=== PATIENT | female | born 1975 | race African-American/Black ===

== ENCOUNTER 2017-09-24 12:55 | Emergency (ER) | payer OTHER ==
[2017-09-24] MEDS: ACETAMINOPHEN 500 MG TAB PO (13:49)
[2017-09-24 14:13] LABS: ADD UMIC NO; UR ASCORBIC ACID NEGATIVE (NEGATIVE); UR BILIRUBIN (Dip) NEGATIVE (NEGATIVE); UR BLOOD (Dip) NEGATIVE (NEGATIVE); UR CLARITY CLEAR (CLEAR); UR COLOR STRAW (YELLOW); UR GLUCOSE (Dip) NEGATIVE (NEGATIVE); UR KETONES (Dip) 1+ mg/dL (NEGATIVE); UR LEUKOCYTE ESTERASE (Dip) NEGATIVE Leu/ul (NEGATIVE); UR NITRITE (Dip) NEGATIVE (NEGATIVE); UR SPECIFIC GRAVITY (Dip) 1.009 (1.003-1.030); UR TOTAL PROTEIN (Dip) NEGATIVE (NEGATIVE); UR UROBILINOGEN (Dip) NEGATIVE (NEGATIVE)
== END 2017-09-24 15:17 | disposition home or self-care (01) ==
LOC: FTE 12:55
DX: R33.9 Retention of urine, unspecified (principal); R10.2 Pelvic and perineal pain
CPT/HCPCS: 51702; 81003; 81025; 99283-25